=== PATIENT | female | born 1990 | race Caucasian/White ===

== ENCOUNTER → 2017-04-20 | Outpatient (CLI) | payer OTHER ==
[2017-04-20 18:19] LABS: THYROID STIMULATING HORMONE 2.45 uIU/mL (0.47-4.68)
[2017-04-22 06:39] LABS: THYROID PEROXIDASE (TPO) AB 19 IU/mL (0-34)
[2017-04-22 07:28] LABS: THYROGLOBULIN AB <1.0 IU/mL (0.0-0.9)
== END ==
LOC: OD 16:04
PROVIDERS: ATTEND Otolaryngology
DX: E06.3 Autoimmune thyroiditis (principal)
CPT/HCPCS: 36415; 84439; 84443; 84480; 86376